=== PATIENT | male | born 1955 | race Caucasian/White ===

== ENCOUNTER → 2017-11-17 | Outpatient (CLI) | payer BC | END | disposition home or self-care (01) | LOC: LAB SHORT 08:47 → PLD 08:47 | DX: D22.5 Melanocytic nevi of trunk (principal) | CPT/HCPCS: 88304; 88305 ==

== ENCOUNTER → 2020-07-15 | Outpatient (CLI) | payer MEDICARE ==
[~2020-07-15] MED LIST: Aspir 8181 MG PO; CENTRUM SILVER1 EAC4 PO; OMEPRAZOLE20 M1 PO; ROSU10TA PO; THERA-D2000 UNIT PO; TURMERIC 500 M1 EACH PO
== END | disposition home or self-care (01) ==
LOC: LAB SHORT 10:55 → PLD 10:55
DX: D48.5 Neoplasm of uncertain behavior of skin (principal)
CPT/HCPCS: 88305

== ENCOUNTER 2022-05-18 06:37 | Day surgery (SDC) | payer MEDICARE ==
[~2022-05-18] VITALS: Ht 177.8 cm; Wt 91.5 kg
--- NOTE | 2022-05-18 07:31 | NUR ---
0700 History, Chart, Medications and Allergies reviewed before start of procedure.Pre-Op teaching done. Pt verbalizes understanding. Patient confirms NPO status and agrees with scheduled surgery. AT BEDSIDE. GLASSES GIVEN TO
--- NOTE | 2022-05-18 07:54 | NUR ---
05/18/22 0754 Santino Hannah NO ABX PER
--- NOTE | 2022-05-18 09:22 | NUR ---
TOLERATED JUICE AND CRACKERS WITH NO PROBLEM DERMABOND INTACT RATES PAIN /10 DECLINES NEED OF PAIN MEDICATION DENIES NAUSEA VERBALIZEWD D/C INSTRUCTION RIDE HOME WITH
== END 2022-05-18 23:33 | disposition home or self-care (01) ==
LOC: ORSCMMR 06:37 → ORD 07:30 → ORSCMMR 23:33
PROVIDERS: Surgery
PROC: 0WQF0ZZ Repair Abdominal Wall, Open Approach (ICD-10-PCS; principal; 2022-05-18 07:30)
DX: K42.9 Umbilical hernia without obstruction or gangrene (principal); E78.5 Hyperlipidemia, unspecified; K21.9 Gastro-esophageal reflux disease without esophagitis; N40.0 Benign prostatic hyperplasia without lower urinary tract symptoms; Z79.899 Other long term (current) drug therapy
CPT/HCPCS: J1100; J2250; J2405; J2704; J3010; J7120

== ENCOUNTER 2023-01-25 06:11 | Day surgery (SDC) | payer MEDICARE ==
[~2023-01-25] VITALS: Ht 177.8 cm; Wt 91.1 kg
[2023-01-25] VITALS (13 sets, daily range): BP systolic 130–159; BP diastolic 77–101
--- NOTE | 2023-01-25 07:07 | NUR ---
Ambulatory in Day Surgery WITH STEADY GAIT. Surgical site prepped with 2% Chlorhexidine cloth wipe. History, Chart, Medications and Allergies reviewed before start of procedure. Lungs clear T/O to Auscultation. Patient confirms NPO status and agrees with scheduled surgery. Pre-Op teaching done. Pt verbalizes understanding. Patient States Post-Procedure ride home has been arranged WITH ANEUDY.
--- NOTE | 2023-01-25 10:29 | NUR ---
DISCHARGE NOTE PT A&OX4, BREATHING RA, NO ACUTE CONCERNS. PT TOLERATING PO FLUIDS AND FOOD. AT BEDSIDE. Discharge instructions reviewed with patient. Patient verbalizes understanding. Copy given to patient to take home. Dressing to procedure site clean, dry, intact with no visible drainage, swelling, erythema or bruising noted. Discharged via wheelchair to private car for ride home.
== END 2023-01-25 10:34 | disposition home or self-care (01) ==
LOC: ORSCMMR 06:11 → ORD 07:30 → ORSCMMR 10:34
PROVIDERS: Surgery
PROC: 0WUF4JZ Supplement Abdominal Wall with Synthetic Substitute, Percutaneous Endoscopic Approach (ICD-10-PCS; principal; 2023-01-25 07:30)
PROC: 3E0M45Z Introduction of Adhesion Barrier into Peritoneal Cavity, Percutaneous Endoscopic Approach (ICD-10-PCS; principal; 2023-01-25 07:30)
DX: K42.0 Umbilical hernia with obstruction, without gangrene (principal); K21.9 Gastro-esophageal reflux disease without esophagitis; N40.0 Benign prostatic hyperplasia without lower urinary tract symptoms; Z79.899 Other long term (current) drug therapy
CPT/HCPCS: A9270; C1781; J0690; J1100; J2250; J2310; J2405; J2704; J2795; J3010; J7120